=== PATIENT | male | born 1980 | race Caucasian/White ===

== ENCOUNTER 2022-02-04 10:26 | Emergency (ER) | payer MEDICAID ==
[~2022-02-04] VITALS: Ht 180.3 cm; Wt 96.0 kg
[2022-02-04 10:49] VITALS: BP 129/84
[2022-02-04] MEDS ORDERED: IBUPROFEN 600MG TABLET PO ONE (13:45)
[2022-02-04] MEDS ORDERED: CLIN-194 MT (15:07)
[2022-02-04] MEDS ORDERED: DOXY100C5 MT (15:20)
[2022-02-04] MEDS ORDERED: LIDOCAINE HCL 1% 20ML VIAL (Pyxis) INJ INFIL ONE (15:30)
[2022-02-04] MEDS ORDERED: CEFTRIAXONE SODIUM 500 MG/VIAL IM ONE (15:30)
== END 2022-02-04 16:01 | disposition home or self-care (01) ==
LOC: ER 10:26
DX: L03.115 Cellulitis of right lower limb (principal)
CPT/HCPCS: 73590; 96372; 99283; J0696